=== PATIENT | male | born 1965 | race Caucasian/White ===

== ENCOUNTER → 2016-08-11 | Outpatient (CLI) | payer MEDICARE | LOC: KOH-I 08:00 | DX: G25.81 Restless legs syndrome (principal) | CPT/HCPCS: 70450 ==

== ENCOUNTER 2021-05-05 12:16 | Inpatient (IN) | payer MEDICARE, OTHER ==
[~2021-05-05] VITALS: Ht 167.6 cm; Wt 97.5 kg
[2021-05-05 13:24] LABS: HEMOGLOBIN 14.3 gm/dl (14.0-17.5); RED BLOOD COUNT 4.68 M/UL (4.20-5.50); WHITE BLOOD COUNT 4.8 K/UL (4.5-11.0)
[2021-05-05 13:47] LABS: BUN/CREATININE RATIO 7 (0-10)
[2021-05-05] MEDS ORDERED: RESTASIS 0.05%1 EACH OU (16:53)
[2021-05-05] MEDS ORDERED: GABAPENTIN600 MG PO (16:53)
[2021-05-05] MEDS ORDERED: HUMIRA40 MG/0.4 SQ (16:53)
[2021-05-05] MEDS ORDERED: ATORVASTATIN CA40 MG PO (16:54)
[2021-05-05] MEDS ORDERED: PIOGLITAZONE HC45 MG PO (16:54)
[2021-05-05] MEDS ORDERED: FENOFIBRATE160 MG PO (16:54)
[2021-05-05] MEDS ORDERED: METOPROLOL SUCC25 MG PO (16:54)
[2021-05-05] MEDS ORDERED: GLIPIZIDE10 MG PO (16:55)
[2021-05-05] MEDS ORDERED: LISINOPRIL10 MG PO (16:55)
[2021-05-05] MEDS ORDERED: METFORMIN HCL1000 MG PO (16:55)
[2021-05-05] MEDS ORDERED: ZETIA10 MG PO (16:55)
[2021-05-05] MEDS ORDERED: JARDIANCE25 MG PO (16:56)
[2021-05-05] MEDS ORDERED: HYDROCHLOROTH12.5 MG PO (16:56)
[2021-05-05] MEDS ORDERED: ARAVA20 MG PO (16:56)
[2021-05-05] MEDS ORDERED: VITAMIN B-121000 MCG PO (16:58)
[2021-05-05] MEDS ORDERED: FLONASE 0.05% N16 GM (16:58)
[2021-05-05] MEDS ORDERED: VITAMIN D350 MCG PO (16:59)
[2021-05-05] MEDS ORDERED: NIFEDIPINE ER30 M1 PO (17:00)
[2021-05-05] MEDS ORDERED: OZEMPIC0.25 MG/0. SQ (17:01)
[2021-05-06 04:55] LABS: BUN/CREATININE RATIO 7 (0-10)
[2021-05-06 05:05] LABS: HEMOGLOBIN 13.1 gm/dl (14.0-17.5); RED BLOOD COUNT 4.29 M/UL (4.20-5.50); WHITE BLOOD COUNT 4.3 K/UL (4.5-11.0)
[2021-05-06] MEDS ORDERED: RYTHMOL SR 325325 MG PO (12:55)
[2021-05-06] MEDS ORDERED: ELIQUIS 5 MG TAB5 MG PO (12:55)
[2021-05-06] MEDS ORDERED: METOPROLOL SUCC50 MG PO (12:55)
[2021-05-06] MEDS ORDERED: OMNICEF 300 MG300 MG PO (12:55)
== END 2021-05-06 14:18 | disposition home or self-care (01) | DRG 195 ==
LOC: ER1 12:16 → CDU 15:45
PROVIDERS: Family Medicine; Physician Assistant; ADMIT Internal Medicine
PROC: B24BZZZ Ultrasonography of Heart with Aorta (ICD-10-PCS; principal; 2021-05-06)
DX: J18.9 Pneumonia, unspecified organism (principal); I48.91 Unspecified atrial fibrillation; E83.42 Hypomagnesemia; Z20.822 Contact with and (suspected) exposure to COVID-19; E11.9 Type 2 diabetes mellitus without complications; I10 Essential (primary) hypertension; E78.5 Hyperlipidemia, unspecified; E66.9 Obesity, unspecified; E87.6 Hypokalemia; G89.29 Other chronic pain; M25.551 Pain in right hip; Z96.642 Presence of left artificial hip joint; L40.9 Psoriasis, unspecified; Z79.01 Long term (current) use of anticoagulants; Z88.8 Allergy status to other drugs, medicaments and biological substances; Z80.8 Family history of malignant neoplasm of other organs or systems; Z80.0 Family history of malignant neoplasm of digestive organs; Z68.34 Body mass index [BMI] 34.0-34.9, adult
CPT/HCPCS: ECHO; 71045; 80053; 80307; 81001; 82550; 82553; 82962; 83605; 83735; 83880; 84439; 84443; 84484; 85025; 85610; 85730; 93005; 93306; 96374; 99285; C9113; J0456; J0696; J1644; J2405; J3475; J7030; U0002

== ENCOUNTER 2021-05-21 17:24 | Emergency (ER) | payer MEDICARE ==
[~2021-05-21 17:24] MED LIST: ARAVA20 MG PO; ATORVASTATIN CA40 MG PO; ELIQUIS 5 MG TAB5 MG PO; FENOFIBRATE160 MG PO; FLONASE 0.05% N16 GM; GABAPENTIN600 MG PO; GLIPIZIDE10 MG PO; HUMIRA40 MG/0.4 SQ; HYDROCHLOROTH12.5 MG PO; JARDIANCE25 MG PO; LISINOPRIL10 MG PO; METFORMIN HCL1000 MG PO; METOPROLOL SUCC25 MG PO; METOPROLOL SUCC50 MG PO; NIFEDIPINE ER30 M1 PO; OMNICEF 300 MG300 MG PO; OZEMPIC0.25 MG/0. SQ; PIOGLITAZONE HC45 MG PO; RESTASIS 0.05%1 EACH OU; RYTHMOL SR 325325 MG PO; VITAMIN B-121000 MCG PO; VITAMIN D350 MCG PO; ZETIA10 MG PO
[2021-05-21 20:17] LABS: RED BLOOD COUNT 4.21 M/UL (4.20-5.50); WHITE BLOOD COUNT 4.2 K/UL (4.5-11.0)
[2021-05-21 20:27] LABS: BUN/CREATININE RATIO 11 (0-10)
[2021-05-21] MEDS ORDERED: LASIX 40 MG TAB40 MG PO (21:25)
[2021-05-21] MEDS ORDERED: K-TAB ER10 MEQ PO (21:25)
== END 2021-05-21 21:40 | disposition home or self-care (01) ==
LOC: ER1 17:24
PROVIDERS: Family Medicine
DX: R60.0 Localized edema (principal)
CPT/HCPCS: 71046; 80053; 82550; 82553; 83880; 84484; 85025; 85610; 93005; 96374; 99284; J1940; Q9967